=== PATIENT | male | born 1945 | race Caucasian/White ===

== ENCOUNTER → 2016-10-10 | Outpatient (CLI) | payer OTHER ==
[~2016-10-10] MED LIST: CIPRO500 MG PO; COUMADIN 1MG TAB1 M1 PO; FISH OIL 1,0001 EAC5 PO; FLAGYL500 MG PO; JALYN 0.5-0.41 EACH PO; LEXAPRO20 MG PO; METFORMIN HCL500 MG PO; MOBIC7.5 MG PO; NORCO 10-325 T1 EACH PO; RAPAFLO PO; SERTRALINE HCL50 MG PO; VESICARE 5 MG TA5 MG PO; VISTARIL 25 MG25 M1 PO; ZOFRAN ODT4 MG PO
== END ==
LOC: RAD 09:00
DX: M51.36 Other intervertebral disc degeneration, lumbar region (principal); M53.9 Dorsopathy, unspecified

== ENCOUNTER → 2016-10-13 | Outpatient (CLI) | payer OTHER | LOC: MRI 10:32 | DX: M48.06 Spinal stenosis, lumbar region (principal); M51.36 Other intervertebral disc degeneration, lumbar region; M41.86 Other forms of scoliosis, lumbar region ==

== ENCOUNTER → 2018-08-27 | Outpatient (CLI) | payer OTHER | LOC: MRI 09:15 | DX: S46.012A Strain of muscle(s) and tendon(s) of the rotator cuff of left shoulder, initial encounter (principal); S46.212A Strain of muscle, fascia and tendon of other parts of biceps, left arm, initial encounter; S43.492A Other sprain of left shoulder joint, initial encounter; M19.012 Primary osteoarthritis, left shoulder; W19.XXXA Unspecified fall, initial encounter; Y93.89 Activity, other specified; Y92.89 Other specified places as the place of occurrence of the external cause; Y99.8 Other external cause status ==

== ENCOUNTER → 2020-01-06 | Outpatient (CLI) | payer OTHER | LOC: LABMALL 12:01 | PROVIDERS: ATTEND Urology | DX: Z85.46 Personal history of malignant neoplasm of prostate (principal) ==

== ENCOUNTER → 2020-07-01 | Outpatient (CLI) | payer OTHER | LOC: LAB 09:59 | PROVIDERS: ATTEND Urology | DX: Z85.46 Personal history of malignant neoplasm of prostate (principal) ==